=== PATIENT | female | born 1980 | race Hispanic/Latino ===

== ENCOUNTER 2021-02-09 12:18 | Emergency (ER) | payer SELFPAY ==
[2021-02-09 12:39] LABS: Urine Blood Negative (Negative); Urine Glucose Negative (Negative); Urine Protein Negative (Negative); Urine Specific Gravity >=1.030 (1.005-1.030)
[2021-02-09] MEDS ORDERED: NA CHLORIDE 0.9% 1,000 ML ONE (12:59)
[2021-02-09 13:01] LABS: Absolute Lymphocytes (CBC) 0.9 K/uL (0.7-4.9); Basophils % 1.1 % (0-1.3); Hematocrit 35.3 % (36.0-45.0); RBC Red Blood Cell Count 4.94 M/uL (3.86-4.86)
[2021-02-09 13:10] LABS: Protime INR 1.01
--- NOTE | 2021-02-09 13:11 | RAD REPORT ---
EXAM DESCRIPTION: RAD - Chest Single View - 02/09/2021 1:00 pm CLINICAL HISTORY: COUGH Chest pain. COMPARISON: No comparisons FINDINGS: Portable technique limits examination quality. The lungs are grossly clear. The heart is normal in size. No displaced fractures. IMPRESSION: No acute intrathoracic process suspected.
[2021-02-09 14:12] LABS: SARS-COV-2 RT PCR NEGATIVE (NEGATIVE)
[2021-02-09 14:36] LABS: ALT/SGPT 27 U/L (12-78); AST/SGOT 26 U/L (15-37); Albumin 3.9 g/dL (3.4-5.0); Alkaline Phosphatase 99 U/L (45-117); BUN Blood Urea Nitrogen 7 mg/dL (7-18); Bicarbonate 28 mmol/L (21-32); Bilirubin Direct < 0.1 mg/dL (0-0.2); Bilirubin Total 0.4 mg/dL (0.2-1.0); Glucose Level 58 mg/dL (74-106); Magnesium 2.5 mg/dL (1.8-2.4); NT PRO-BNP 102 pg/mL (<125); Potassium 3.4 mmol/L (3.5-5.1); Protein, Total 8.3 g/dL (6.4-8.2); Sodium Level 143 mmol/L (136-145); Troponin (Emerg Dept Use Only) < 0.02 ng/mL (0.0-0.045)
[2021-02-09 14:39] LABS: Barbiturates NEGATIVE (NEGATIVE); Benzodiazepines NEGATIVE (NEGATIVE); Cocaine NEGATIVE (NEGATIVE); METHAMPHETAM POSITIVE (NEGATIVE); Methadone NEGATIVE (NEGATIVE); Opiates NEGATIVE (NEGATIVE); Phencyclidine NEGATIVE (NEGATIVE); THC Cannibis NEGATIVE (NEGATIVE)
--- NOTE | 2021-02-09 15:17 | EDPHYS ---
Physician Documentation [facility] Name: Jennifer Law Age: 40 yrs Sex: Female : 1980 Arrival Date: 02/09/2021 Time: 12:19 Bed 3 Private MD: ED Physician Pietro Marie HPI: 02/09 12:49 This 40 yrs old Female presents to ER via EMS with complaints of Unresponsive. carlee 12:49 This 40 yrs old Female presents to ER via EMS with complaints of Unresponsive. carlee 12:49 The patient presents to the emergency department after a known overdose, that was carlee intentional. Context: Method: the patient has a confirmed or suspected ingestion, sleeping pills. Associated signs and symptoms: Pertinent positives: decreased level of consciousness. Severity of symptoms: At their worst the symptoms were moderate just prior to arrival, in the emergency department the symptoms have improved markedly. intentional overdose. The patient presents with confusion. Onset: The symptoms/episode began/occurred just prior to arrival. Possible causes: drug use, benzodiazepines. Current symptoms: In the emergency department the patient's symptoms have improved, mildly. Historical: - Allergies: 12:26 Unable to obtain; ch5 - Home Meds: 12:26 Unable to obtain [Active]; ch5 - PMHx: 12:26 Unable to Obtain; ch5 - PSHx: 12:26 Unable to Obtain; ch5 - Immunization history:: Adult Immunizations unknown, . - Social history:: Smoking status: unknown. - Family history:: not pertinent. ROS: 12:49 Constitutional: Negative for fever, chills, and weight loss, Eyes: Negative for injury, carlee pain, redness, and discharge, ENT: Negative for injury, pain, and discharge, Neck: Negative for injury, pain, and swelling, Cardiovascular: Negative for chest pain, palpitations, and edema, Respiratory: Negative for shortness of breath, cough, wheezing, and pleuritic chest pain, Abdomen/GI: Negative for abdominal pain, nausea, vomiting, diarrhea, and constipation, Back: Negative for injury and pain, : Negative for injury, bleeding, discharge, and swelling, MS/Extremity: Negative for injury and deformity, Skin: Negative for injury, rash, and discoloration, Psych: Negative for depression, anxiety, suicide ideation, homicidal ideation, and hallucinations, Allergy/Immunology: Negative for hives, rash, and allergies, Endocrine: Negative for neck swelling, polydipsia, polyuria, polyphagia, and marked weight changes, Hematologic/Lymphatic: Negative for swollen nodes, abnormal bleeding, and unusual bruising. 12:49 Neuro: Positive for altered mental status, dizziness, weakness. Exam: 12:49 Constitutional: This is a well developed, well nourished patient who is awake, alert, carlee and in no acute distress. Head/Face: Normocephalic, atraumatic. Eyes: Pupils equal round and reactive to light, extra-ocular motions intact. Lids and lashes normal. Conjunctiva and sclera are non-icteric and not injected. Cornea within normal limits. Periorbital areas with no swelling, redness, or edema. ENT: Nares patent. No nasal discharge, no septal abnormalities noted. Tympanic membranes are normal and external auditory canals are clear. Oropharynx with no redness, swelling, or masses, exudates, or evidence of obstruction, uvula midline. Mucous membranes moist. Neck: Trachea midline, no thyromegaly or masses palpated, and no cervical lymphadenopathy. Supple, full range of motion without nuchal rigidity, or vertebral point tenderness. No Meningismus. Chest/axilla: Normal chest wall appearance and motion. Nontender with no deformity. No lesions are appreciated. Cardiovascular: Regular rate and rhythm with a normal S1 and S2. No gallops, murmurs, or rubs. Normal PMI, no JVD. No pulse deficits. Respiratory: Lungs have equal breath sounds bilaterally, clear to auscultation and percussion. No rales, rhonchi or wheezes noted. No increased work of breathing, no retractions or nasal flaring. Abdomen/GI: Soft, non-tender, with normal bowel sounds. No distension or tympany. No guarding or rebound. No evidence of tenderness throughout. Back: No spinal tenderness. No costovertebral tenderness. Full range of motion. Skin: Warm, dry with normal turgor. Normal color with no rashes, no lesions, and no evidence of cellulitis. MS/ Extremity: Pulses equal, no cyanosis. Neurovascular intact. Full, normal range of motion. Psych: Awake, alert, with orientation to person, place and time. Behavior, mood, and affect are within normal limits. 12:49 ECG was reviewed by the Attending Physician. 12:49 Neuro: Orientation: unable to test, Mentation: slow to respond, confused, Memory: is normal, appropriate for stated age, no acute changes, Cranial nerves: grossly normal, is grossly normal based on the patient's age, no acute changes, Gait: not tested. seizure activity, is not displayed by the patient. Vital Signs: 12:22 BP 116 / 85; Pulse 72; Resp 20; Temp 97.9(O); Pulse Ox 99% on R/A; Weight 47.63 kg; ch5 Height 5 ft. 6 in. (167.64 cm); 12:29 BP 116 / 85; Pulse 78; Resp 16; Pulse Ox 99% ; Pain 0/10; ch5 15:08 BP 122 / 72; Pulse 72; Resp 18; Pulse Ox 99% on R/A; ch5 15:44 BP 121 / 90; Pulse 81; Resp 16; Pulse Ox 100% on R/A; ch5 16:31 BP 132 / 94; Pulse 80; Resp 16; Pulse Ox 100% on R/A; Pain 0/10; ss 16:54 BP 112 / 88; Pulse 78; Resp 18; Pulse Ox 97% on R/A; mh5 12:22 Body Mass Index 16.95 (47.63 kg, 167.64 cm) ch5 MDM: 12:22 Patient medically screened. carlee 12:53 Differential diagnosis: Ingestion/exposure to sleeping pills over medication. carlee Differential Diagnosis altered mental status. Differential Diagnosis: CVA, electrolyte abnormality, alcohol intoxication, hypoglycemia, intracranial bleed, TIA, UTI, volume depletion. Data reviewed: vital signs, nurses notes, lab test result(s), EKG, radiologic studies, plain films. Data interpreted: classroom monitor: rate is 78 beats/min, rhythm is regular. Test interpretation: by ED physician or midlevel provider: ECG, plain radiologic studies. Counseling: I had a detailed discussion with the patient and/or guardian regarding: the historical points, exam findings, and any diagnostic results supporting the discharge/admit diagnosis, lab results, radiology results. 02/09 12:31 Order name: Basic Metabolic Panel [facility] 02/09 12:31 Order name: CBC with Diff carlee 02/09 12:31 Order name: LFT's carlee 02/09 12:31 Order name: Magnesium carlee 02/09 12:31 Order name: NT PRO-BNP; Complete Time: 15:12 [facility] 02/09 12:31 Order name: PT-INR; Complete Time: 14:00 [facility] 02/09 12:31 Order name: Troponin (emerg Dept Use Only); Complete Time: 15:12 [facility] 02/09 12:31 Order name: Acetaminophen; Complete Time: 15:12 [facility] 02/09 12:31 Order name: ETOH Level; Complete Time: 14:00 [facility] 02/09 12:31 Order name: Ptt, Activated; Complete Time: 14:00 [facility] 02/09 12:31 Order name: Salicylate; Complete Time: 15:12 [facility] 02/09 12:31 Order name: Urine Drug Screen; Complete Time: 15:12 [facility] 02/09 12:31 Order name: Basic Metabolic Panel; Complete Time: 15:12 [facility] 02/09 12:31 Order name: CBC with Automated Diff; Complete Time: 14:00 [facility] 02/09 12:31 Order name: XRAY Chest (1 view); Complete Time: 14:00 [facility] 02/09 12:31 Order name: EKG; Complete Time: 12:32 [facility] 02/09 12:31 Order name: Cardiac monitoring; Complete Time: 12:43 [facility] 02/09 12:31 Order name: EKG - Nurse/Tech; Complete Time: 12:44 [facility] 02/09 12:31 Order name: IV Saline Lock; Complete Time: 12:44 [facility] 02/09 12:31 Order name: Liver (Hepatic) Function; Complete Time: 15:12 [facility] 02/09 12:31 Order name: Magnesium; Complete Time: 15:12 [facility] 02/09 12:38 Order name: SARS-COV-2 RT PCR (Document "Date of Onset" if Symptomatic); Complete Time: [facility] 15:12 02/09 12:39 Order name: Urine Dipstick-Ancillary; Complete Time: 14:00 [facility] 02/09 12:45 Order name: Urine --Ancillary (enter results) 02/09 15:13 Order name: Diet Regular; Complete Time: 15:14 [facility] 02/09 16:51 Order name: Glucose, Ancillary Testing [facility] 02/09 12:31 Order name: Labs collected and sent; Complete Time: 12:44 [facility] 02/09 12:31 Order name: O2 Per Protocol; Complete Time: 12:44 [facility] 02/09 12:31 Order name: O2 Sat Monitoring; Complete Time: 12:44 [facility] 02/09 12:31 Order name: Suicide Precautions; Complete Time: 12:42 [facility] 02/09 12:31 Order name: Suicide Screening ([place]); Complete Time: 14:54 [facility] 02/09 12:31 Order name: Urine Dipstick-Ancillary (obtain specimen); Complete Time: 12:43 [facility] 02/09 12:31 Order name: Urine Test (obtain specimen); Complete Time: 12:43 [facility] 02/09 12:31 Order name: Parmar; Complete Time: 14:34 [facility] 02/09 12:31 Order name: Seizure Precautions; Complete Time: 12:42 [facility] EC:49 Rate is 74 beats/min. Rhythm is regular. QRS [place] is Normal. [place] interval is normal. QRS carlee interval is normal. QT interval is normal. No Q waves. T waves are Normal. No ST changes noted. Clinical impression: Normal ECG and No evidence of ischemia. Interpreted by me. Reviewed by me. Administered Medications: 12:42 Drug: NS 0.9% 1000 ml Route: IV; Rate: 1 bolus; Site: right antecubital; ch5 13:45 Follow up: IV Status: Completed infusion; IV Intake: 1000ml ss 15:00 Drug: D50W 50 ml Route: IVP; Site: right antecubital; ch5 16:32 Follow up: Response: No adverse reaction; Blood sugar is elevated ss 15:24 Drug: Potassium Effervescent Tablet 25 mEq Route: PO; ch5 16:32 Follow up: Response: No adverse reaction ss 16:52 Drug: D50W 50 ml Route: IVP; Site: right antecubital; ss 17:21 Follow up: Response: No adverse reaction; Blood sugar is elevated ss Disposition Summary: 02/09/21 15:16 Discharge Ordered Location: Home carlee Problem: new carlee Symptoms: have improved carlee Condition: Stable carlee Diagnosis - Abuse of other non-psychoactive substances carlee - Adverse effect of unspecified drugs, medicaments and biological substances carlee - Adverse effect of amphetamines carlee - Hypokalemia carlee - Adjustment disorder with depressed mood - boyfriend carlee - Hypoglycemia, unspecified carlee Followup: carlee - With: Private Physician - When: 1 - 2 days - Reason: Recheck today's complaints, Continuance of care, Re-evaluation by your physician Discharge Instructions: - Discharge Summary Sheet carlee - Adjustment Disorder, Adult carlee - Potassium Content of Foods carlee - Hypoglycemia carlee - Substance Use Disorder carlee - Blood Glucose Monitoring, Adult carlee - Hypoglycemia, [id number] carlee - Hypokalemia carlee - Preventing Hypoglycemia carlee Forms: - Medication Reconciliation Form carlee - Thank You Letter carlee - Antibiotic Education carlee - Prescription Opioid Use carlee Signatures: Dispatcher [employer] EDMS Pietro Marie MD MD cha Smirch, Shelby, RN RN Antonio Puga RN RN ch5 Corrections: (The following items were deleted from the chart) 13:35 12:39 SARS-COV-2 RT PCR+[email or web address].[email or web address] ordered. EDMS EDMS
--- NOTE | 2021-02-09 15:17 | ER ---
Nurse's Notes [facility] Name: Jennifer Law Age: 40 yrs Sex: Female : 1980 Arrival Date: 02/09/2021 Time: 12:19 Bed 3 Private MD: Diagnosis: Abuse of other non-psychoactive substances;Adverse effect of unspecified drugs, medicaments and biological substances;Adverse effect of amphetamines;Hypokalemia;Adjustment disorder with depressed mood-boyfriend;Hypoglycemia, unspecified Presentation: 02/09 12:22 Chief complaint: EMS states: Pt was brought in for being found unconscious ch5 unresponsive. EMS brought a bottle of mixed pills. Asked pt what she took and she stated "Sleeping pills"Pointed out to EMS the orange pills and white pills. [place] pills look to be amitriptyline from pill identifier. Coronavirus screen: Vaccine status:. Ebola Screen: Unable to complete the Ebola screening because:. Initial Sepsis Screen: Does the patient meet any 2 criteria? No. Patient's initial sepsis screen is negative. Does the patient have a suspected source of infection? No. Patient's initial sepsis screen is negative. Risk Assessment: Do you want to hurt yourself or someone else? Unable to obtain. Onset of symptoms is unknown. 12:22 Method Of Arrival: EMS: [facility] 12:22 Acuity: RONAK 2 ch5 Triage Assessment: 12:26 General: Appears slender, Behavior is drowsy, Smells of Reports Denies "stated she ch5 wants to sleep". Historical: - Allergies: 12:26 Unable to obtain; ch5 - Home Meds: 12:26 Unable to obtain [Active]; ch5 - PMHx: 12:26 Unable to Obtain; ch5 - PSHx: 12:26 Unable to Obtain; ch5 - Immunization history:: Adult Immunizations unknown, . - Social history:: Smoking status: unknown. - Family history:: not pertinent. Screenin:17 Abuse screen: Denies threats or abuse. Denies injuries from another. Nutritional ss screening: No deficits noted. Tuberculosis screening: Never had TB. Assessment: 13:17 Reassessment: Pt is becoming more awake. When asked if she took the medications in ss excess to harm herself she stated, "no" that she was just tired and wanted to sleep. 16:50 Reassessment: Pt ate sandwhich chips and juice, while sitting up at bedside. Repeat BGL ss is 51. Dr. Marie notified. D%W 1 amp ordered and administered. Pt verbalizes understanding importance of possibly staying over night to monitor BGL, but insist that she wants to go home and sleep in her own bed, but is willing to stay in ED for another BGL recheck. Vital Signs: 12:22 BP 116 / 85; Pulse 72; Resp 20; Temp 97.9(O); Pulse Ox 99% on R/A; Weight 47.63 kg; ch5 Height 5 ft. 6 in. (167.64 cm); 12:29 BP 116 / 85; Pulse 78; Resp 16; Pulse Ox 99% ; Pain 0/10; ch5 15:08 BP 122 / 72; Pulse 72; Resp 18; Pulse Ox 99% on R/A; ch5 15:44 BP 121 / 90; Pulse 81; Resp 16; Pulse Ox 100% on R/A; ch5 16:31 BP 132 / 94; Pulse 80; Resp 16; Pulse Ox 100% on R/A; Pain 0/10; ss 16:54 BP 112 / 88; Pulse 78; Resp 18; Pulse Ox 97% on R/A; mh5 12:22 Body Mass Index 16.95 (47.63 kg, 167.64 cm) [facility] ED Course: 12:19 Patient arrived in ED. 5 12:20 Patient has correct armband on for positive identification. Placed in gown. Bed in low mh5 position. Call light in reach. Side rails up X2. Warm blanket given. pcb designer on. Pulse ox on. NIBP on. 12:22 Antonio Puga, RN is Primary Nurse. 5 12:22 Pietro Marie MD is Attending Physician. carlee 12:26 Triage completed. 5 12:29 Arm band placed on right wrist. [facility] 12:41 Initial lab(s) drawn, by ED staff, sent to lab. Urine collected: straight cath [facility] specimen, clear, EKG done, COVID swab sent to lab. Straight cath inserted, using sterile technique, 16 Fr. 12:42 Basic Metabolic Panel Sent. [facility] 12:42 Magnesium Sent. 5 12:42 Liver (Hepatic) Function Sent. mh5 12:42 CBC with Automated Diff Sent. mh5 12:43 Acetaminophen Sent. 5 12:43 ETOH Level Sent. 5 12:43 Ptt, Activated Sent. 5 12:43 Salicylate Sent. 5 12:43 Urine Drug Screen Sent. mh5 12:43 Basic Metabolic Panel Sent. 5 12:43 CBC with Diff Sent. 5 12:43 LFT's Sent. 5 12:43 Magnesium Sent. 5 12:43 XRAY Chest (1 view) Sent. 5 12:44 Seizure precautions initiated. 5 12:44 NT PRO-BNP Sent. 5 12:44 PT-INR Sent. 5 12:44 Troponin (emerg Dept Use Only) Sent. [facility] 12:51 Safety checks:. 5 12:59 XRAY Chest (1 view) In Process Unspecified. EDMD 16:32 No provider procedures requiring assistance completed. ss 17:21 IV discontinued, intact, bleeding controlled, No redness/swelling at site. Pressure ss dressing applied. Administered Medications: 12:42 Drug: NS 0.9% 1000 ml Route: IV; Rate: 1 bolus; Site: right antecubital; ch5 13:45 Follow up: IV Status: Completed infusion; IV Intake: 1000ml ss 15:00 Drug: D50W 50 ml Route: IVP; Site: right antecubital; ch5 16:32 Follow up: Response: No adverse reaction; Blood sugar is elevated ss 15:24 Drug: Potassium Effervescent Tablet 25 mEq Route: PO; ch5 16:32 Follow up: Response: No adverse reaction ss 16:52 Drug: D50W 50 ml Route: IVP; Site: right antecubital; ss 17:21 Follow up: Response: No adverse reaction; Blood sugar is elevated ss Intake: 13:45 IV: 1000ml; Total: 1000ml. ss Outcome: 15:16 Discharge ordered by . carlee 17:21 Discharged to home ambulatory, with family. ss 17:21 Condition: improved 17:21 Discharge instructions given to patient, family, Instructed on discharge instructions, follow up and referral plans. Demonstrated understanding of instructions, follow-up care. 17:21 Patient left the ED. ss Signatures: Dispatcher [employer] EDMD Pietro Marie MD MD cha Smirch, Shelby, RN RN Odilia Armendariz [facility] Edd, Christopher, RN RN ch5 Corrections: (The following items were deleted from the chart) 13:35 12:42 SARS-COV-2 RT PCR+MOL.LAB.BRZ drawn and sent. 5 EDMS
[2021-02-09] MEDS ORDERED: POTASSIUM 25 MEQ EFFERV TAB ONE (15:45)
[2021-02-09] MEDS ORDERED: D50W 25 GM/50 ML SYRINGE IV ONE (15:45)
[2021-02-09] MEDS ORDERED: D50W 50 ML IV ONE (17:05)
[2021-02-09 17:44] VITALS: TEMP 97.9
[2021-02-09 17:50] VITALS: BP 112/88; O2SAT 97
== END 2021-02-09 17:21 | disposition home or self-care (01) ==
LOC: ER 12:18
DX: F55.8 Abuse of other non-psychoactive substances (principal); T43.625A Adverse effect of amphetamines, initial encounter; F43.21 Adjustment disorder with depressed mood; Y92.9 Unspecified place or not applicable; E87.6 Hypokalemia; E16.2 Hypoglycemia, unspecified
CPT/HCPCS: 0240U; 36415; 51702; 71045; 80048; 80076; 80307; 80320; 80329; 81003; 81025; 82947; 83735; 83880; 84484; 85025; 85610; 85730; 93005; 96361; 96374; 99284; J7030

== ENCOUNTER 2021-02-17 15:49 | Emergency (ER) | payer SELFPAY ==
--- NOTE | 2021-02-17 16:24 | EDPHYS ---
Physician Documentation [facility] Name: Jennifer Law Age: 40 yrs Sex: Female : 1980 Arrival Date: 02/17/2021 Time: 15:53 Bed 9 Private MD: ED Physician Pietro Marie HPI: 02/17 16:05 This 40 yrs old Female presents to ER via EMS with complaints of Found on Ground. 16:05 The patient presents with decreased responsiveness, found on ground outside next to house. Onset: The symptoms/episode began/occurred just prior to arrival. Associated signs and symptoms: Pertinent positives: LOC. Current symptoms: In the emergency department the patient's symptoms have improved, moderately, is more alert. Patient reports she grabbed wire to move out of the way and was electrocuted. Historical: - Allergies: 15:59 No Known Drug Allergies; jd3 - Home Meds: 15:59 None [Active]; jd3 - PMHx: 15:59 eating disorder; jd3 - PSHx: 15:59 None; jd3 - Immunization history:: Adult Immunizations up to date, Client reports having NOT received the Covid vaccine. - Social history:: Smoking status: Patient reports the use of cigarette tobacco products, smokes one pack cigarettes per day. ROS: 16:08 Cardiovascular: Positive for chest pain. cp 16:08 Constitutional: Negative for fever. cp 16:08 Neck: Positive for pain with movement, pain at rest. 16:08 Respiratory: Negative for cough, shortness of breath. 16:08 Abdomen/GI: Negative for abdominal pain. 16:08 MS/extremity: Positive for pain, of the left shoulder, Negative for deformity. 16:08 Neuro: Positive for loss of consciousness, Negative for altered mental status. 16:08 All other systems are negative. Exam: 16:13 Constitutional: The patient appears in no acute distress, alert, awake, cp non-diaphoretic, non-toxic, well developed, well nourished. 16:13 Head/Face: Normocephalic, atraumatic. cp 16:13 Eyes: Periorbital structures: appear normal, Pupils: equal, round, and reactive to light and accomodation, Extraocular movements: intact throughout, Conjunctiva: normal, no exudate, no injection, Lids and lashes: appear normal, bilaterally. 16:13 ENT: External ear(s): are unremarkable, Ear canal(s): are normal, clear, TM's: dullness, bilaterally, Nose: is normal, Mouth: Lips: moist, Oral mucosa: moist, Posterior pharynx: Airway: no evidence of obstruction, patent. 16:13 Neck: External neck: tenderness, that is mild, left lateral neck, C-spine: vertebral tenderness, is not appreciated, crepitus, is not appreciated, ROM/movement: pain, that is mild, with any movement, limited range of motion, is not appreciated, Meningeal signs: are not present, nuchal rigidity, is not appreciated. 16:13 Chest/axilla: Inspection: normal, Palpation: crepitus, is not appreciated, tenderness, that is moderate, of the anterior aspect of right upper chest, anterior aspect of left upper chest and mid-sternal area. 16:13 Cardiovascular: Rate: normal, Rhythm: regular, Edema: is not appreciated, JVD: is not appreciated. 16:13 Respiratory: the patient does not display signs of respiratory distress, Respirations: normal, no use of accessory muscles, no retractions, labored breathing, is not present, Breath sounds: are clear throughout, no decreased breath sounds, no stridor, no wheezing. 16:13 Abdomen/GI: Inspection: abdomen appears normal, Bowel sounds: active, all quadrants, Palpation: soft, in all quadrants, mild abdominal tenderness, in all quadrants. 16:13 Musculoskeletal/extremity: Extremities: grossly normal except: noted in the left shoulder: pain, tenderness, ROM: limited passive range of motion due to pain, in the left shoulder, Pulses: noted to be 2+ in the right radial artery and left radial artery. 16:13 Neuro: Orientation: to person, place \T\ time. Mentation: able to follow commands, slow to respond, Motor: moves all fours, strength is normal, Sensation: no obvious gross deficits. Vital Signs: 16:00 BP 146 / 109; Pulse 61; Resp 17 S; Pulse Ox 100% on R/A; Weight 43.54 kg (R); Height 5 jd3 ft. 2 in. (157.48 cm) (R); Pain 10/10; 16:00 Body Mass Index 17.56 (43.54 kg, 157.48 cm) jd3 MDM: 16:24 Data reviewed: vital signs, nurses notes. cp 16:24 Refusal of service: The patient/guardian displays adequate decision making capability cp and despite a detailed discussion of alternatives, benefits, risks, and consequences refuses: CT Scan, all lab tests. Administered Medications: No medications were administered Disposition: 02/18 11:36 Co-signature as Attending Physician, Pietro Marie MD I agree with the assessment and [facility] plan of care. Disposition Summary: 02/17/21 16:24 Left Against Medical Advice Location: Home jd3 Condition: Stable jd3 Signatures: Dispatcher [employer] EDPietro Headley MD MD cha Page, Corey PA PA Julian Pichardo RN RN jd3 Corrections: (The following items were deleted from the chart) 02/17 16:10 16:01 Constitutional: Negative for body aches, chills, fever, poor PO intake, cp cp 16:10 16:01 Eyes: Negative for discharge, pain, redness, cp cp 16:10 16:01 ENT: Negative for ear pain, sore throat, cp cp 16:10 16:01 Cardiovascular: Negative for chest pain, palpitations, cp cp 16:10 16:01 Respiratory: Negative for cough, shortness of breath, wheezing, cp cp 16:10 16:01 Abdomen/GI: Positive for abdominal pain, Negative for vomiting, diarrhea, cp constipation, cp 16:10 16:01 : Negative for urinary symptoms, testicular pain cp cp 16:10 16:01 Skin: Positive for cellulitis, of the abdomen, cp cp 16:10 16:01 Neuro: Negative for altered mental status, headache, syncope, weakness, cp cp 16:10 16:01 All other systems are negative, cp cp 16:11 15:59 Cardiac monitoring ordered. jd3 16:11 15:59 EKG - Nurse/Tech ordered. cp jd3 16:11 15:59 IV Saline Lock ordered. jd3 16:11 15:59 Labs collected and sent ordered. cp jd3 16:11 15:59 Oxygen Per Protocol ordered. cp jd3 16:11 15:59 O2 Sat Monitoring ordered. cp jd3 16:11 15:59 Urine Dipstick-Ancillary ordered. cp jd3 16:11 15:59 Urine Test ordered. cp jd3 16:11 16:05 Constitutional: The patient appears in no acute distress, alert, awake, cp non-toxic, well developed, well nourished, cp 16:11 16:05 Head/Face: Normocephalic, atraumatic. cp cp 16:11 16:05 Eyes: Periorbital structures: appear normal, Conjunctiva: normal, no exudate, no cp injection, Sclera: no appreciated abnormality, Lids and lashes: appear normal, bilaterally, cp 16:11 16:05 ENT: External ear(s): are unremarkable, Nose: is normal, Mouth: Lips: moist, Oral cp mucosa: moist, Posterior pharynx: Airway: no evidence of obstruction, patent, cp 16:11 16:05 Chest/axilla: Inspection: normal, cp cp 16:11 16:05 Cardiovascular: Rate: normal, Rhythm: regular, cp cp 16:11 16:05 Respiratory: the patient does not display signs of respiratory distress, cp Respirations: normal, Breath sounds: are clear throughout, no decreased breath sounds, cp 16:11 16:05 Abdomen/GI: Inspection: area of well circumscribed erythema, induration noted cp right lower quadrant, Bowel sounds: active, all quadrants, Palpation: soft, in all quadrants, moderate abdominal tenderness, in the right lower quadrant, rebound tenderness, is not appreciated, voluntary guarding, is elicited in the right lower quadrant, cp 16:11 16:05 Back: pain, is absent, cp cp 16:11 16:05 Neuro: Orientation: to person, place \T\ time. Mentation: is normal, Motor: moves cp all fours, strength is normal, Sensation: is normal, cp 16:14 15:59 Chest Single View+[id number].[email or web address] ordered. EDMS EDMS 02/18 02:42 02:41 Cardiovascular: Negative for cp cp
--- NOTE | 2021-02-17 16:24 | ER ---
Nurse's Notes [facility] Name: Jennifer Law Age: 40 yrs Sex: Female : 1980 Arrival Date: 02/17/2021 Time: 15:53 Bed 9 Private MD: Diagnosis: Presentation: 02/17 15:53 Chief complaint: EMS states: "pt was found by her neighbor in the yard next to her jd3 house. the pt was initially unconscious, but woke up on our arrival. when she woke up she reported that she touched a wire on a fuse box and that's all she remembers. the neighbor denied seeing any wires or fuse box where they found the pt. pt reporting pain to left hand/fingers as well as left side of ribs and a headache.". Coronavirus screen: At this time, the client does not indicate any symptoms associated with coronavirus-19. Ebola Screen: Patient negative for fever greater than or equal to 101.5 degrees Fahrenheit, and additional compatible Ebola Virus Disease symptoms. Initial Sepsis Screen: Does the patient meet any 2 criteria? No. Patient's initial sepsis screen is negative. Does the patient have a suspected source of infection? No. Patient's initial sepsis screen is negative. Risk Assessment: Do you want to hurt yourself or someone else? Patient reports no desire to harm self or others. Onset of symptoms was February 17, 2021. 15:53 Method Of Arrival: EMS: [facility] j 15:53 Acuity: RONAK 3 jd3 Historical: - Allergies: 15:59 No Known Drug Allergies; jd3 - Home Meds: 15:59 None [Active]; jd3 - PMHx: 15:59 eating disorder; jd3 - PSHx: 15:59 None; jd3 - Immunization history:: Adult Immunizations up to date, Client reports having NOT received the Covid vaccine. - Social history:: Smoking status: Patient reports the use of cigarette tobacco products, smokes one pack cigarettes per day. Screenin:02 Abuse screen: Denies threats or abuse. Nutritional screening: No deficits noted. jd3 Tuberculosis screening: No symptoms or risk factors identified. Fall Risk Ambulatory Aid- None/Bed Rest/Nurse Assist (0 pts). Gait- Normal/Bed Rest/Wheelchair (0 pts) Mental Status- Oriented to own ability (0 pts). Total Coleman Fall Scale indicates No Risk (0-24 pts). Assessment: 16:00 General: Appears uncomfortable, Behavior is calm, cooperative, appropriate for age. jd3 Pain: Complains of pain in head, left lateral anterior chest and left hand Quality of pain is described as tender. Neuro: Level of Consciousness is awake, obeys commands, Oriented to person, place, time, situation. Cardiovascular: Capillary refill < 3 seconds Patient's skin is warm and dry. Respiratory: Airway is patent Respiratory effort is even, unlabored, Respiratory pattern is regular, symmetrical, Denies cough, shortness of breath. GI: : No signs and/or symptoms were reported regarding the genitourinary system. EENT: No signs and/or symptoms were reported regarding the EENT system. Derm: Skin is intact, Skin is dry, Skin is normal, Skin temperature is warm. Musculoskeletal: Circulation, motion, and sensation intact. Range of motion: intact in all extremities, Swelling present in left hand. 16:09 Reassessment: Patient is alert, oriented x 3, equal unlabored respirations, skin jd3 warm/dry/pink. pt refusing care at this time. signed AMA form. provider notified. even and steady gait to ER lobby. Vital Signs: 16:00 BP 146 / 109; Pulse 61; Resp 17 S; Pulse Ox 100% on R/A; Weight 43.54 kg (R); Height 5 jd3 ft. 2 in. (157.48 cm) (R); Pain 10/10; 16:00 Body Mass Index 17.56 (43.54 kg, 157.48 cm) jd3 ED Course: 15:53 Patient arrived in ED. jd3 15:53 Julian Nunez RN is Primary Nurse. jd3 15:57 Pietro Jones PA is PHCP. cp 15:57 Pietro Marie MD is Attending Physician. cp 15:59 Triage completed. jd3 16:00 Arm band placed on. jd3 16:02 Patient has correct armband on for positive identification. Placed in gown. Bed in low jd3 position. Call light in reach. Side rails up X2. Pulse ox on. NIBP on. 16:10 No provider procedures requiring assistance completed. Patient did not have IV access jd3 during this emergency room visit. Administered Medications: No medications were administered Outcome: 16:10 AMA AMA form signed jd3 16:10 Condition: stable 16:10 Discharge instructions given to patient, Instructed on follow up and referral plans. Demonstrated understanding of follow-up care. 16:24 Patient left the ED. jd3 Signatures: Pietro Jones PA PA cp Davies, Jonathon RN RN jd3
[2021-02-17 16:48] VITALS: BP 146/109; O2SAT 100
== END 2021-02-17 16:24 | disposition left against medical advice (07) ==
LOC: ER 15:49
DX: T75.4XXA Electrocution, initial encounter (principal); F17.210 Nicotine dependence, cigarettes, uncomplicated
CPT/HCPCS: 99283